=== PATIENT | male | born 1995 | race Caucasian/White ===

== ENCOUNTER 2018-07-24 09:25 | Emergency (ER) | payer OTHER ==
--- NOTE | 2018-07-24 10:45 | EDM.PDOC ---
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 Has pain laterally. Able to partially weight bear. No numbness/tingling. No other reported injury. - Related Data Allergies Allergy/AdvReac Type Severity Reaction Status Date / Time amoxicillin Allergy Cannot Verified 07/24/18 09:28 Remember Home Meds: Home Meds . [No Known Home Meds] 07/24/18 [History] Past Medical History - Past Health History Medical/Surgical History: Denies Medical/Surgical History Social & Family History - Tobacco Use Smoking Status *Q: Never Smoker - Alcohol Use Days Per Week of Alcohol Use: 6 Number of Drinks Per Day: 1 Total Drinks Per Week: 6 - Recreational Drug Use Recreational Drug Use: No ED ROS GENERAL - Review of Systems Review Of Systems: ROS reveals no pertinent complaints other than HPI. ED EXAM, GENERAL - Physical Exam Exam: See Below Exam Limited By: No Limitations General Appearance: Alert, WD/WN, No Apparent Distress Eye Exam: Bilateral Eye: EOMI, PERRL Throat/Mouth: Normal Voice, No Airway Compromise Head: Atraumatic, Normocephalic Neck: Supple Respiratory/Chest: No Respiratory Distress Peripheral Pulses: 2+: Dorsalis Pedis (L) Extremities: Other (mild to moderate swelling noted over lateral ankle, tender around distal portion of tibia. No crepitus. No bruising. Skin intact. Ankle ROM intact but has some discomfort when dorsiflexing ankle and pointing toe downward. Rest of foot/toes/medial ankle nontender. Lower leg proximal to ankle nontender. ) Neurological: Alert, Oriented, Normal Cognition Psychiatric: Normal Affect, Normal Mood Skin Exam: Warm, Dry, Intact, Normal Color ED GENERAL MEDICAL PROCEDURES - Splinting Left Lower Extremity Splint Site: left ankle Pre-procedure NV status: Normal Post-procedure NV status: Normal Splint Material: Fiberglass Splint Design: Posterior Applied & Form Fitted By: Provider Provider Post-Splint Application NV Check: NV Status Normal, Good Position Complications: No Course - Vital Signs Last Recorded V/S: Last Vital Signs Temp 36.6 C 07/24/18 09:28 Pulse 65 07/24/18 09:28 Resp 16 07/24/18 09:28 BP 155/78 H 07/24/18 09:28 Pulse Ox 99 07/24/18 09:28 - Orders/Labs/Meds Orders: Active Orders 24 hr Category Date Time Status Ankle Min 3V Lt [CR] Stat Exams 07/24/18 09:31 Taken - Radiology Interpretation Free Text/Narrative:: Radiology reviewed xray and noted no obvious fractures on report. There is slight irregularity on one view however. Recommended to patient/ patient's mother that a new xray be performed in 7-10 days if pain persists/no significant improvement is noted. - Re-Assessments/Exams Free Text/Narrative Re-Assessment/Exam: 07/24/18 10:58 Ankle splinted for comfort. Patient says there are crutches at home that he can use. Splint care reviewed. Follow up appointment made for at hospital clinic for recheck. If concern for fracture persists recommend repeat xray in 7 -10 days. Precautions reviewed prior to discharge. Departure - Departure Time of Disposition: 10:42 Disposition: Home, Self-Care 01 Condition: Good Clinical Impression: Injury of left ankle Qualifiers: Encounter type: initial encounter Qualified Code(s): S99.912A - Unspecified injury of left ankle, initial encounter - Discharge Information *PRESCRIPTION DRUG MONITORING PROGRAM REVIEWED*: Not Applicable *COPY OF PRESCRIPTION DRUG MONITORING REPORT IN PATIENT KEYANA: Not Applicable Instructions: Cast or Splint Care, Adult, [id number] Referrals: PCP,None [Primary Care Provider] - Forms: ED Department Discharge Additional Instructions: Follow up on at hospital clinic. Please arrive at 11:15, appointment is at 11:30 Recommend repeat xray in 7-10 days to make certain there is no fracture as we discussed in the ER. OK to use Tylenol for pain. You can also use Motrin or Aleve, however this may slow bone healing. Elevate injured foot. Avoid weight bearing for the next 48 hours until you are rechecked at the clinic. OK to use your crutches that you have at home to help you get around the house. - My Orders Last 24 Hours: My Active Orders 07/24/18 09:31 Ankle Min 3V Lt [CR] Stat - Assessment/Plan Last 24 Hours: My Active Orders 07/24/18 09:31 Ankle Min 3V Lt [CR] Stat
== END 2018-07-24 11:00 | disposition home or self-care (01) ==
LOC: LL.ED 09:25
DX: S99.912A Unspecified injury of left ankle, initial encounter (principal); W55.29XA Other contact with cow, initial encounter; Z88.1 Allergy status to other antibiotic agents
CPT/HCPCS: 29515; 73610-LT; 99283-25